=== PATIENT | male | born 1990 | race Caucasian/White ===

== ENCOUNTER 2016-10-01 17:12 | Emergency (ER) | END 2016-10-01 18:58 | disposition left against medical advice (07) | LOC: UCEAST 17:12 | DX: K08.89 Other specified disorders of teeth and supporting structures (principal); Z53.21 Procedure and treatment not carried out due to patient leaving prior to being seen by health care provider ==

== ENCOUNTER 2016-11-01 02:26 | Emergency (ER) | payer BC ==
[2016-11-01 02:35] VITALS: BP 129/72
[2016-11-01] MEDS ORDERED: Penicillin VK TAB* 250 MG PO ONE (02:56)
--- NOTE | 2016-11-01 03:05 | ED ---
Manoj Veloz Benjamin, scribed for Johnathan Laws MD on 11/01/16 at 0303 . Complex/Multi-Sys Presentation - HPI Summary HPI Summary: 26yo male c/o left low dental pain. Pt has hx of recent dental infection 4 weeks ago, given abx which helped with his symptoms. Now, pt has been having dental pain for 2 days. Has a dental appointment scheduled this Saturday, but couldnt tolerate pain. - History Of Current Complaint Chief Complaint: EDDentalPain Time Seen by Provider: 11/01/16 02:54 Hx Obtained From: Patient Onset/Duration: Sudden Onset, Lasting Days, Still Present Timing: Constant Severity Currently: Moderate Severity Initially: Moderate Location: Pain At: - left lower jaw/tooth - Allergies/Home Medications Allergies/Adverse Reactions: Allergies Allergy/AdvReac Type Severity Reaction Status Date / Time No Known Allergies Allergy Verified 11/01/16 02:31 PMH/Surg Hx/FS Hx/Imm Hx Endocrine/Hematology History: Denies: Hx Diabetes, Hx Thyroid Disease Cardiovascular History: Denies: Hx Hypertension Respiratory History: Denies: Hx Asthma, Hx Chronic Obstructive Pulmonary Disease (COPD) GI History: Denies: Hx Ulcer Infectious Disease History: No Infectious Disease History: Denies: Hx Clostridium Difficile, Hx Hepatitis, Hx Human Immunodeficiency Virus (HIV), Hx of Known/Suspected MRSA, Hx Shingles, Hx Tuberculosis, Traveled Outside the [place] in Last 30 Days - Family History Known Family History: Negative: Cardiac Disease, Hypertension, Blood Disorder - Social History Alcohol Use: Weekly Substance Use Type: Reports: None Smoking Status (MU): Light Every Day Tobacco Smoker Type: Cigarettes Amount Used/How Often: 3-4 cig a day Review of Systems Constitutional: Negative Eyes: Negative Positive: Dental Pain - left lower Cardiovascular: Negative Respiratory: Negative Gastrointestinal: Negative Genitourinary: Negative Musculoskeletal: Negative Skin: Negative Neurological: Negative Psychological: Normal All Other Systems Reviewed And Are Negative: Yes Physical Exam Triage Information Reviewed: Yes Vital Signs On Initial Exam: Initial Vitals Temp Pulse Resp BP Pulse Ox 96.9 F 58 18 129/72 100 11/01/16 02:31 11/01/16 02:31 11/01/16 02:31 11/01/16 02:31 11/01/16 02:31 Vital Signs Reviewed: Yes Appearance: Positive: Well-Appearing, No Pain Distress Skin: Positive: Warm Head/Face: Positive: Normal Head/Face Inspection Eyes: Positive: RHONA ENT: Positive: Hearing grossly normal Dental: Positive: Gross Decay/Caries @ - diffuse Neck: Positive: Supple Respiratory/Lung Sounds: Positive: Breath Sounds Present Neurological: Positive: Sensory/Motor Intact Psychiatric: Positive: Affect/Mood Appropriate Diagnostics - Vital Signs Vital Signs Temp Pulse Resp BP Pulse Ox 11/01/16 02:31 96.9 F 58 18 129/72 100 - Laboratory Lab Statement: Any lab studies that have been ordered have been reviewed, and results considered in the medical decision making process. Complex Multi-Symp Course/Dx - Diagnoses Provider Diagnoses: Dentalgia Discharge - Discharge Plan Condition: Guarded Disposition: HOME Prescriptions: Penicillin VK TAB* [Penicillin VK 250 mg Tab*] 250 mg PO QID #30 tab Patient Education Materials: Toothache (ED) Referrals: Grant Valdovinos MD [Primary Care Provider] - The documentation as recorded by the Manoj cohen Benjamin accurately reflects the service I personally performed and the decisions made by , Johnathan Laws MD.
== END 2016-11-01 03:20 | disposition home or self-care (01) ==
LOC: ED 02:26
DX: K08.89 Other specified disorders of teeth and supporting structures (principal); F17.210 Nicotine dependence, cigarettes, uncomplicated
CPT/HCPCS: 99282; A9270-GY

== ENCOUNTER 2017-10-14 10:11 | Emergency (ER) | payer BC ==
[2017-10-14 10:29] VITALS: BP 109/61
--- NOTE | 2017-10-14 10:30 | UC ---
Respiratory Complaint HPI - HPI Summary HPI Summary: Pt presents with sinus congestion, sore throat, dry cough, and body aches for the last 3 days. He tells me that his son was diagnosed with the flu and is being treated with tamiflu. He has not taken anything for his symptoms. Has felt feverish, but has not taken his temperature. Denies SOB, chest pain, abdominal pain, n/v/d/c - History of Current Complaint Chief Complaint: UCGeneralIllness Stated Complaint: COUGH CONGESTION Time Seen by Provider: 10/14/17 10:30 Hx Obtained From: Patient Onset/Duration: Gradual Onset Severity Initially: Moderate Severity Currently: Severe Pain Intensity: 10 Pain Scale Used: 0-10 Numeric Character: Cough: Nonproductive - Allergies/Home Medications Allergies/Adverse Reactions: Allergies Allergy/AdvReac Type Severity Reaction Status Date / Time No Known Allergies Allergy Verified 10/14/17 10:25 PMH/Surg Hx/FS Hx/Imm Hx Previously Healthy: Yes - Surgical History Surgical History: None - Family History Known Family History: Negative: Cardiac Disease, Hypertension, Blood Disorder - Social History Occupation: Employed Full-time Lives: With Family Alcohol Use: Occasionally Substance Use Type: None Smoking Status (MU): Light Every Day Tobacco Smoker Type: Cigarettes Amount Used/How Often: 3-4 cig a day - Immunization History Most Recent Tetanus Shot: up to date Review of Systems Constitutional: Fever, Fatigue, Other - Body aches Skin: Negative Eyes: Negative ENT: Sore Throat, Sinus Congestion Respiratory: Cough Cardiovascular: Negative Gastrointestinal: Negative Musculoskeletal: Negative Neurological: Negative Psychological: Negative All Other Systems Reviewed And Are Negative: Yes Physical Exam Triage Information Reviewed: Yes Appearance: Well-Appearing, No Pain Distress, Well-Nourished Vital Signs: Initial Vital Signs Temp 99.4 F 10/14/17 10:26 Pulse 75 10/14/17 10:26 Resp 16 10/14/17 10:26 BP 109/61 10/14/17 10:26 Pulse Ox 100 10/14/17 10:26 Vital Signs Reviewed: Yes Eyes: Positive: Conjunctiva Clear. Negative: Conjunctiva Inflamed, Discharge ENT: Positive: Hearing grossly normal, Pharynx normal, Nasal congestion, TMs normal, Uvula midline. Negative: Pharyngeal erythema, Nasal drainage, TM bulging, TM dull, TM red, Tonsillar swelling, Tonsillar exudate, Hoarse voice, Sinus tenderness Neck: Positive: Supple, Nontender, No Lymphadenopathy Respiratory: Positive: Lungs clear, Normal breath sounds, No respiratory distress, No accessory muscle use Cardiovascular: Positive: RRR, No Murmur, Pulses Normal Neurological: Positive: Alert Psychological: Positive: Age Appropriate Behavior Skin: Negative: rashes UC Diagnostic Evaluation - Laboratory O2 Sat by Pulse Oximetry: 100 Respiratory Course/Dx - Course Course Of Treatment: Influenza A positive. Wants treatment with tamiflu - Differential Dx/Diagnosis Provider Diagnoses: Influenza A Discharge - Discharge Plan Condition: Stable Disposition: HOME Prescriptions: Oseltamivir CAP* [Tamiflu CAP*] 75 mg PO BID #10 cap Patient Education Materials: Influenza (ED) Referrals: No Primary Care Phys,NOPCP [Primary Care Provider] - Additional Instructions: If you develop a fever, shortness of breath, chest pain, new or worsening symptoms - please call your PCP or go to the ED.
== END 2017-10-14 11:16 | disposition home or self-care (01) ==
LOC: UCEAST 10:11
DX: J10.1 Influenza due to other identified influenza virus with other respiratory manifestations (principal); F17.210 Nicotine dependence, cigarettes, uncomplicated
CPT/HCPCS: 87502; 99212; G0463

== ENCOUNTER 2017-10-23 09:19 | Emergency (ER) | payer BC ==
[2017-10-23 10:02] VITALS: BP 115/68
== END 2017-10-23 11:37 | disposition left against medical advice (07) ==
LOC: UCEAST 09:19
DX: H92.09 Otalgia, unspecified ear (principal); R09.89 Other specified symptoms and signs involving the circulatory and respiratory systems; Z53.21 Procedure and treatment not carried out due to patient leaving prior to being seen by health care provider
CPT/HCPCS: 99211; G0463